=== PATIENT | female | born 1950 | race Caucasian/White ===

== ENCOUNTER 2022-07-07 16:42 | Emergency (ER) | payer MEDICARE | END 2022-07-07 18:03 | disposition home or self-care (01) | LOC: NAV ERS 16:42 | DX: S60.122A Contusion of left index finger with damage to nail, initial encounter (principal); E11.9 Type 2 diabetes mellitus without complications; I10 Essential (primary) hypertension; W23.0XXA Caught, crushed, jammed, or pinched between moving objects, initial encounter | CPT/HCPCS: 11740 ==